=== PATIENT | male | born 2000 | race African-American/Black ===

== ENCOUNTER 2023-02-24 20:55 | Emergency (ER) | payer OTHER ==
[2023-02-24] MEDS ORDERED: LIDOCAINE 1% MPF 5 ML VIAL ONE (21:39)
--- NOTE | 2023-02-24 22:04 | RAD REPORT ---
EXAM DESCRIPTION: CT - [id number] - 02/24/2023 9:39 pm CLINICAL HISTORY: Trauma, head and neck injury. TRAUMA COMPARISON: No comparisons TECHNIQUE: Axial 5 mm thick images of the head were obtained. Axial 2 mm thick images of the cervical spine were obtained with sagittal and coronal reconstruction images generated and reviewed. All CT scans are performed using dose optimization technique as appropriate and may include automated exposure control or mA/KV adjustment according to patient size. FINDINGS: CT HEAD WITHOUT CONTRAST: No acute hemorrhage, hydrocephalus or extra-axial collection is identified.No areas of brain edema or midline shift. Moderate polypoid mucosal thickening in the maxillary sinuses.The calvarium is intact. CT CERVICAL SPINE WITHOUT CONTRAST: No fracture or subluxation.No prevertebral soft tissues swelling is identified. IMPRESSION: No acute intracranial or cervical spine findings.
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
[2023-02-24] MEDS ORDERED: HYDROCODONE/APAP 5/325 MG TAB ONE ×2 (22:26→22:30)
[2023-02-24 23:17] VITALS: TEMP 99.3; O2SAT 100
[2023-02-24 23:18] VITALS: BP 145/70
== END 2023-02-24 22:22 | disposition home or self-care (01) ==
LOC: ER 20:55
PROC: 0HQ2XZZ Repair Right Ear Skin, External Approach (ICD-10-PCS; principal; 2023-02-24)
DX: S01.311A Laceration without foreign body of right ear, initial encounter (principal); S06.0X0A Concussion without loss of consciousness, initial encounter
CPT/HCPCS: 70450; 72125; 99284; 12011; J2001